=== PATIENT | female | born 1960 | race African-American/Black ===

== ENCOUNTER 2018-03-17 11:29 | Inpatient (IN) | payer BC ==
[~2018-03-17] VITALS: Ht 160 cm; Wt 81.6 kg
[2018-03-17] MEDS ORDERED: MORPHINE SULFATE 4 MG/ML CPJ (NOT FOR IM USE) IV STA (15:21)
[2018-03-17] MEDS ORDERED: SODIUM CHLORIDE 0.9% 1,000 ML IV ONE (15:21)
[2018-03-17] MEDS ORDERED: ONDANSETRON HCL 4MG/2ML INJ IV STA (15:21)
[2018-03-17] MEDS ORDERED: MORPHINE SULFATE 10 MG/ML CPJ IV STA (15:49)
[2018-03-17 16:10] LABS: HEMATOCRIT. 41.5 % (36.0-48.0); HEMOGLOBIN. 13.8 g/dL (12.0-16.0); MEAN CORPUSCULAR HEMOGLOBIN 28.2 pg (28.0-32.0); MEAN CORPUSCULAR VOLUME 84.8 fL (81.0-99.0); MEAN PLATELET VOLUME 9.6 fl (7.4-10.4); PLATELET 192 x1000/uL (130-400); RED CELL DISTRIBUTION WIDTH 15.1 % (11.6-14.6)
[2018-03-17 16:17] LABS: CHLORIDE 106 mEq/L (98-107)
[2018-03-17 16:25] LABS: D-DIMER 0.76 mg/L FEU (<0.50); PARTIAL THROMBOPLASTIN TIME 26.1 sec (23.4-31.0)
[2018-03-17 16:28] LABS: CLARITY URINE CLEAR (CLEAR); COLOR URINE YELLOW (YELLOW); KETONES URINE TRACE (NEGATIVE); LEUKOCYTE ESTERASE URINE NEGATIVE (NEGATIVE); NITRITE URINE NEGATIVE (NEGATIVE); OCCULT BLOOD URINE NEGATIVE (NEGATIVE); PH URINE 6.5 (4.5-8.0); PROTEIN URINE NEGATIVE (NEGATIVE); SPECIFIC GRAVITY URINE 1.012 (1.005-1.030); UROBILINOGEN URINE 0.2 E.U./dL (0.2-1.0)
[2018-03-17 17:26] LABS: PLATELET ESTIMATE NORMAL
[2018-03-17] MEDS ORDERED: IOHEXOL-350 100 ML BOTTLE ONE (18:18)
[2018-03-17] MEDS ORDERED: ASPIRIN 325MG EC TABLET PO ONE (18:30)
[2018-03-17 22:20] VITALS: BP 141/73
[2018-03-17 23:51] VITALS: BP 141/73
[2018-03-18] VITALS (8 sets, daily range): BP systolic 20–141; BP diastolic 51–93
[2018-03-18] MEDS ORDERED: ONDANSETRON HCL 4MG/2ML INJ IV PRN
[2018-03-18] MEDS ORDERED: NA PHOS,M-B/NA PHOS,DI-BA ENEMA 118ML PR PRN
[2018-03-18] MEDS ORDERED: CLONIDINE 0.1MG TABLET PO PRN
[2018-03-18] MEDS ORDERED: IPRATROPIUM/ALBUTEROL 0.5-3(2.5)MG/3ML NEB INH PRN
[2018-03-18] MEDS ORDERED: DIPHENHYDRAMINE 50MG/ML VIAL IV PRN
[2018-03-18] MEDS ORDERED: ACETAMINOPHEN 325MG TABLET PO PRN
[2018-03-18] MEDS ORDERED: HYDROCODONE/ACETAMINOPHEN 10/325MG TABLET PO PRN
[2018-03-18] MEDS ORDERED: ACETAMINOPHEN 650MG SUPP PR PRN
[2018-03-18] MEDS ORDERED: GUAIFENESIN 200MG/10ML SUGAR FREE UDC PO PRN
[2018-03-18] MEDS ORDERED: DOCUSATE SODIUM 100MG CAPSULE PO PRN
[2018-03-18] MEDS ORDERED: MAGNESIUM/ALUMINUM HYDROXIDE/SIMETHICONE 30ML UDC PO PRN
[2018-03-18] MEDS ORDERED: ACETAMINOPHEN 650MG/20.3ML UDC GT PRN
[2018-03-18 06:36] LABS: BASOPHILS % 0.4 % (0.0-2.0); EOSINOPHILS % 0.5 % (0.0-5.0); HEMATOCRIT. 35.1 % (36.0-48.0); HEMOGLOBIN. 11.6 g/dL (12.0-16.0); LYMPHOCYTES % 32.3 % (20.0-50.0); MEAN CORPUSCULAR HEMOGLOBIN 28.3 pg (28.0-32.0); MEAN CORPUSCULAR VOLUME 85.6 fL (81.0-99.0); MEAN PLATELET VOLUME 9.4 fl (7.4-10.4); MONOCYTES % 12.4 % (2.0-8.0); NEUTROPHILS % 54.4 % (40.0-76.0); PLATELET 157 x1000/uL (130-400); RED CELL DISTRIBUTION WIDTH 15.4 % (11.6-14.6)
[2018-03-18 06:45] LABS: CHLORIDE 109 mEq/L (98-107)
[2018-03-18 07:04] LABS: CREATINE KINASE 63 IU/L (26-192)
[2018-03-18 07:05] LABS: LDL CHOLESTEROL 62 mg/dL (5-100)
[2018-03-18 07:08] LABS: HDL CHOLESTEROL 77 mg/dL (40-59)
[2018-03-18 07:11] LABS: CREATINE KINASE MB FRACTION < 1.0 ng/mL (0.5-3.6)
[2018-03-18] MEDS: ENOXAPARIN 40MG/0.4ML SYR SUBCUT SCH (08:53)
[2018-03-18] MEDS: FAMOTIDINE 20MG/2ML VIAL IV SCH ×2 (08:53→21:09)
[2018-03-18] MEDS: HYDROCODONE/ACETAMINOPHEN 5/325MG TABLET PO PRN (08:54)
[2018-03-18] MEDS ORDERED: POTASSIUM CHLORIDE 20MEQ TABLET SR PO SCH (12:15)
[2018-03-18] MEDS: SODIUM CHLORIDE 0.9% INJ 3ML FLUSH IVF SCH ×2 (12:34→21:09)
[2018-03-18] MEDS: SODIUM CHLORIDE 0.9% 1,000 ML IV SCH (14:45)
[2018-03-18 14:54] LABS: *AMPHETAMINES SCREEN URINE NEGATIVE (NEGATIVE); *BARBITURATES SCREEN URINE NEGATIVE (NEGATIVE)
[2018-03-18 14:55] LABS: *BENZODIAZEPINES SCREEN URINE NEGATIVE (NEGATIVE); *COCAINE SCREEN URINE NEGATIVE (NEGATIVE); METHADONE URINE SCREEN NEGATIVE (NEGATIVE); OPIATES URINE SCREEN NEGATIVE (NEGATIVE); PHENCYCLIDINE URINE SCREEN NEGATIVE (NEGATIVE)
[2018-03-18 14:56] LABS: CANNABINOID URINE SCREEN NEGATIVE (NEGATIVE)
[2018-03-18 15:46] LABS: CLARITY URINE CLEAR (CLEAR); COLOR URINE YELLOW (YELLOW); KETONES URINE NEGATIVE (NEGATIVE); LEUKOCYTE ESTERASE URINE NEGATIVE (NEGATIVE); NITRITE URINE NEGATIVE (NEGATIVE); OCCULT BLOOD URINE NEGATIVE (NEGATIVE); PH URINE 5.5 (4.5-8.0); PROTEIN URINE NEGATIVE (NEGATIVE); SPECIFIC GRAVITY URINE 1.017 (1.005-1.030); UROBILINOGEN URINE 0.2 E.U./dL (0.2-1.0)
[2018-03-18 16:00] LABS: METHADONE URINE SCREEN NEGATIVE (NEGATIVE)
[2018-03-18 16:01] LABS: CANNABINOID URINE SCREEN NEGATIVE (NEGATIVE); OPIATES URINE SCREEN PRESUMTIVE POSITIVE (NEGATIVE); PHENCYCLIDINE URINE SCREEN NEGATIVE (NEGATIVE)
[2018-03-18 16:02] LABS: *AMPHETAMINES SCREEN URINE NEGATIVE (NEGATIVE); *BARBITURATES SCREEN URINE NEGATIVE (NEGATIVE); *BENZODIAZEPINES SCREEN URINE NEGATIVE (NEGATIVE); *COCAINE SCREEN URINE NEGATIVE (NEGATIVE)
[2018-03-18 16:42] LABS: CREATINE KINASE 63 IU/L (26-192)
[2018-03-18 16:43] LABS: CREATINE KINASE MB FRACTION < 1.0 ng/mL (0.5-3.6)
[2018-03-19] VITALS: BP 125/60
[2018-03-19] MEDS: SODIUM CHLORIDE 0.9% 1,000 ML IV SCH (03:30)
[2018-03-19] MEDS: HYDROCODONE/ACETAMINOPHEN 5/325MG TABLET PO PRN ×2 (03:47→14:00)
[2018-03-19 04:00] VITALS: BP 118/60
[2018-03-19] MEDS: SODIUM CHLORIDE 0.9% INJ 3ML FLUSH IVF SCH ×2 (05:47→14:01)
[2018-03-19 07:36] LABS: HEMATOCRIT. 35.7 % (36.0-48.0); HEMOGLOBIN. 11.5 g/dL (12.0-16.0); MEAN CORPUSCULAR VOLUME 86.6 fL (81.0-99.0); MEAN PLATELET VOLUME 9.4 fl (7.4-10.4); PLATELET 154 x1000/uL (130-400); RED BLOOD CELL COUNT 4.13 mill/uL (4.2-5.4); RED CELL DISTRIBUTION WIDTH 15.2 % (11.6-14.6)
[2018-03-19 07:38] LABS: CHLORIDE 112 mEq/L (98-107)
[2018-03-19 07:54] LABS: CREATINE KINASE 51 IU/L (26-192)
[2018-03-19 08:00] VITALS: BP 112/52
[2018-03-19 08:02] LABS: CREATINE KINASE MB FRACTION < 1.0 ng/mL (0.5-3.6)
[2018-03-19] MEDS: FAMOTIDINE 20MG/2ML VIAL IV SCH (09:27)
[2018-03-19] MEDS: ENOXAPARIN 40MG/0.4ML SYR SUBCUT SCH (09:27)
[2018-03-19 10:11] LABS: ATYPICAL LYMPHOCYTES 1; PLATELET ESTIMATE NORMAL
[2018-03-19 12:00] VITALS: BP 115/49
[2018-03-19] MEDS ORDERED: POTASSIUM CHLORIDE 20MEQ TABLET SR PO NR (13:45)
[2018-03-19 14:49] VITALS: BP 115/49
== END 2018-03-19 15:50 | disposition home or self-care (01) | DRG 392 ==
LOC: ER 11:29 → 8WST 18:56 → ENRESERV 19:49 → 8WST 23:27
PROVIDERS: ADMIT Family Medicine; ATTEND Family Medicine
DX: K21.9 Gastro-esophageal reflux disease without esophagitis (principal); I20.9 Angina pectoris, unspecified; E87.6 Hypokalemia; F03.90 Unspecified dementia, unspecified severity, without behavioral disturbance, psychotic disturbance, mood disturbance, and anxiety; R79.1 Abnormal coagulation profile; R07.9 Chest pain, unspecified; R00.1 Bradycardia, unspecified; R19.7 Diarrhea, unspecified
CPT/HCPCS: 36415; 71045; 71275; 74174; 80061; 80305; 82550; 82553; 83735; 83880; 84443; 84484; 85379; 93005; 93306; 93970; 96361; 96374; 96375; 99285; J1650; J2270; J2405; J3490; J7030; Q9967